=== PATIENT | female | born 1935 | race Caucasian/White ===

== ENCOUNTER 2024-01-02 05:27 | Inpatient (IN) | payer OTHER, SELFPAY ==
[2024-01-02] VITALS (22 sets, daily range): BP systolic 96–169; BP diastolic 63–85; BMI 23.9; BMI 22.9
[2024-01-02 00:33] LABS: % Basophils 0.2 % (0-2); % Eosinophils 1.1 % (0-6); % Immature Granulocytes 1.1 % (0-0.5); % Lymphocytes 16.3 % (20.5-51.1); % Monocytes 7.1 % (1.7-9.3); % Neutrophils 74.2 % (42.2-75.2); Absolute Eosinophils 0.2 10^3/uL (0-0.7); Absolute Immature Granulocytes 0.2 10^3/uL (0-0.05); Absolute Lymphocytes 2.4 10^3/uL (1.2-3.4); Absolute Monocytes 1.1 10^3/uL (0.1-0.6); Absolute Neutrophils 11.1 10^3/uL (1.4-6.5); Hematocrit 41.7 % (37.0-47.0); Hemoglobin 14.2 g/dL (12.0-16.0); Mean Corp Hgb Conc. 34.1 g/dL (33.0-37.0); Mean Corpuscular Hgb 27.8 pg (27.0-31.0); Mean Corpuscular Volume 81.6 fL (81.0-99.0); Mean Platelet Volume 10.6 fL (7.4-10.4); Nucleated Red Blood Cells % 0 %; Platelet Count 223 10^3/uL (130-400); Red Blood Cell Count 5.11 10^6/uL (4.20-5.40); Red Cell Dist. Width 13.9 % (11.5-14.5); White Blood Cell Count 14.9 10^3/uL (4.8-10.8)
[2024-01-02 00:51] LABS: ALT (SGPT) 22 U/L (0-35); AST (SGOT) 18 U/L (14-36); Albumin 3.2 g/dl (3.5-5.0); Alkaline Phosphatase 82 U/L (38-126); Blood Urea Nitrogen 18 mg/dl (7-17); Calcium 8.2 mg/dl (8.4-10.2); Carbon Dioxide 25 mmol/L (22-30); Chloride 102 mmol/L (98-107); Estimated Creatinine Clearance 50 ml/min; Glucose 182 mg/dl (70-99); Potassium 3.5 mmol/L (3.5-5.1); Sodium 134 mmol/L (135-145); Total Bilirubin 0.6 mg/dl (0.2-1.3); Total Protein 5.8 g/dl (6.3-8.2); eGFR > 60.00
[2024-01-02] MEDS: SUBLIMAZE 50 MCG IV ×3 (01:48→03:08)
--- NOTE | 2024-01-02 03:08 | EDRN ---
0308 took over patient care. second attempt at chest tube placement appears successful per xray. Pt placed on suction per MD orders. Pt resting comfortably does report mild discomfort. Pt placed on 12 L nonrebreather tolerating at 95% SpO2. Xray
called for portable xray.
--- NOTE | 2024-01-02 03:41 | ED.GENMED ---
History of Present Illness
<Dusyt Marti Jr., PA-C - Last Filed: 01/02/24 03:45>
General
Chief Complaint: Breathing Problem
Source: patient and family
Exam Limitations: none
Time Seen by Provider: 01/02/24 00:43
Nursing documentation reviewed up to this point in time: agreed with
Travel History
Have you had any contact with someone who has COVID-19?: No
Do you have any symptoms of coronavirus? Fever > 100 degrees, chills, cough, shortness of breath, sore throat, loss of taste or smell, muscle aches, or headache?: No
History of Present Illness
History of Present Illness:
88-year-old female past ministry of COPD diabetes recently was admitted to [facility] discharged 3 days ago after she had an episode of RSV and was quite short of breath she was discharged home with improving symptoms woke up early this
morning prior to arrival with concerns of abrupt worsening of shortness of breath and some discomfort to left chest mainly. Denies any specific fevers nausea vomiting numbness weakness.
Review of Systems
<Dusty Marti Jr., PA-C - Last Filed: 01/02/24 03:45>
Review of Systems
Allergies reviewed?: Yes
All Other Systems: ROS reviewed and negative except as documented in HPI and ROS
Phy Exam
<Dusty Marti Jr., PA-C - Last Filed: 01/02/24 03:45>
Physical Exam
Physical Exam:
GENERAL: Alert , in no apparent distress
EYE: pupils equal and reactive
NECK: Supple, no significant adenopathy.
ENT: o/p clr, mmm.
CARDIAC: Regular rate and rhythm .
LUNGS: Diminished lung sounds on the left side normal lung sounds on the right
ABDOMEN: Soft, without focal tenderness, no r/g, no cvat
NEUROLOGICAL: Alert and oriented, no focal neuro deficits
SKIN: Warm and dry, skin intact.
MUSCULOSKELETAL: No edema, well perfused.
PSYCH: Normal and appropriate interaction.
Scores
<Dusty Marti Jr., PA-C - Last Filed: 01/02/24 03:45>
Heart Failure Risk
Heart Failure Risk Score: Not Applicable
Course
<Dusty Marti Jr., PA-C - Last Filed: 01/02/24 03:45>
Orders/Labs/Results
Orders:
Orders
01/02/24 00:11
Electrocardiogram (*1) Urgent
Reason for Study: Shortness of Breath
01/02/24 00:12
EKG- Treatment ONCE
01/02/24 00:13
CMP [Comprehensive Metabolic Panel] Urgent
Complete Blood Count/With Diff Urgent
01/02/24 00:44
Chest [CR Chest - 2 Views ] Urgent
Comment:
Reason For Exam: sob
01/02/24 01:28
Fentanyl Citrate/Pf [Sublimaze] 50 mcg IV NOW STA
01/02/24 01:45
Fentanyl Citrate/Pf [Sublimaze] 100 mcg .ROUTE .[facility]
01/02/24 02:25
Chest X-ray Portable [CR Chest Portable - 1 View] Stat
Comment:
Reason For Exam: chest tube place,ent
Reason Study Needs to be Portable: Patient Unstable
01/02/24 02:45
Fentanyl Citrate/Pf [Sublimaze] 50 mcg IV NOW STA
01/02/24 02:50
Chest X-ray Portable [CR Chest Portable - 1 View] Stat
Comment:
Reason For Exam: chest tube placement
Reason Study Needs to be Portable: Patient Unstable
01/02/24 03:07
Fentanyl Citrate/Pf [Sublimaze] 50 mcg IV NOW STA
01/02/24 03:17
Chest X-ray Portable [CR Chest Portable - 1 View] Stat
Comment:
Reason For Exam: recheck pneumo after suction
Reason Study Needs to be Portable: Unable to Transport
01/02/24 04:[address] Non Medication Order As Directed
Physician Order: Ok to decrease oxygen to NC if O2 sats tolerate
Abnormal Lab Results
01/02/24
00:13
WBC 14.9 H 10^3/uL
(4.8-10.8)
MPV 10.6 H fL
(7.4-10.4)
Abs Immat Gran (auto) 0.2 H 10^3/uL
(0-0.05)
Absolute Neuts (auto) 11.1 H 10^3/uL
(1.4-6.5)
Absolute Monos (auto) 1.1 H 10^3/uL
(0.1-0.6)
Immature Gran % 1.1 H %
(0-0.5)
Lymphocytes % 16.3 L %
(20.5-51.1)
Sodium 134 L mmol/L
(135-145)
BUN 18 H mg/dl
(7-17)
Glucose 182 H mg/dl
(70-99)
Calcium 8.2 L mg/dl
(8.4-10.2)
Total Protein 5.8 L g/dl
(6.3-8.2)
Albumin 3.2 L g/dl
(3.5-5.0)
01/02/24 00:13
01/02/24 00:13
Vital Signs
Initial and Last Documented VS:
Initial Vital Signs
Temp Pulse Resp Pulse Ox
97.8 F 93 22 94
01/01/24 23:59 01/01/24 23:59 01/01/24 23:59 01/01/24 23:59
Last Documented Vital Signs
Temp Pulse Resp BP Pulse Ox
97.8 F 88 18 169/84 95
01/01/24 23:59 01/02/24 03:30 01/02/24 03:30 01/02/24 03:00 01/02/24 03:30
<Dima Flores MD - Last Filed: 01/02/24 04:43>
Orders/Labs/Results
Orders:
Orders
01/02/24 00:11
Electrocardiogram (*1) Urgent
Reason for Study: Shortness of Breath
01/02/24 00:12
EKG- Treatment ONCE
01/02/24 00:13
CMP [Comprehensive Metabolic Panel] Urgent
Complete Blood Count/With Diff Urgent
01/02/24 00:44
Chest [CR Chest - 2 Views ] Urgent
Comment:
Reason For Exam: sob
01/02/24 01:28
Fentanyl Citrate/Pf [Sublimaze] 50 mcg IV NOW STA
01/02/24 01:45
Fentanyl Citrate/Pf [Sublimaze] 100 mcg .ROUTE .[facility]
01/02/24 02:25
Chest X-ray Portable [CR Chest Portable - 1 View] Stat
Comment:
Reason For Exam: chest tube place,ent
Reason Study Needs to be Portable: Patient Unstable
01/02/24 02:45
Fentanyl Citrate/Pf [Sublimaze] 50 mcg IV NOW STA
01/02/24 02:50
Chest X-ray Portable [CR Chest Portable - 1 View] Stat
Comment:
Reason For Exam: chest tube placement
Reason Study Needs to be Portable: Patient Unstable
01/02/24 03:07
Fentanyl Citrate/Pf [Sublimaze] 50 mcg IV NOW STA
01/02/24 03:17
Chest X-ray Portable [CR Chest Portable - 1 View] Stat
Comment:
Reason For Exam: recheck pneumo after suction
Reason Study Needs to be Portable: Unable to Transport
01/02/24 04:[address] Non Medication Order As Directed
Physician Order: Ok to decrease oxygen to NC if O2 sats tolerate
Abnormal Lab Results
01/02/24
00:13
WBC 14.9 H 10^3/uL
(4.8-10.8)
MPV 10.6 H fL
(7.4-10.4)
Abs Immat Gran (auto) 0.2 H 10^3/uL
(0-0.05)
Absolute Neuts (auto) 11.1 H 10^3/uL
(1.4-6.5)
Absolute Monos (auto) 1.1 H 10^3/uL
(0.1-0.6)
Immature Gran % 1.1 H %
(0-0.5)
Lymphocytes % 16.3 L %
(20.5-51.1)
Sodium 134 L mmol/L
(135-145)
BUN 18 H mg/dl
(7-17)
Glucose 182 H mg/dl
(70-99)
Calcium 8.2 L mg/dl
(8.4-10.2)
Total Protein 5.8 L g/dl
(6.3-8.2)
Albumin 3.2 L g/dl
(3.5-5.0)
01/02/24 00:13
01/02/24 00:13
Vital Signs
Initial and Last Documented VS:
Initial Vital Signs
Temp Pulse Resp Pulse Ox
97.8 F 93 22 94
01/01/24 23:59 01/01/24 23:59 01/01/24 23:59 01/01/24 23:59
Last Documented Vital Signs
Temp Pulse Resp BP Pulse Ox
97.8 F 88 18 169/84 95
01/01/24 23:59 01/02/24 03:30 01/02/24 03:30 01/02/24 03:00 01/02/24 03:30
Procedures
<Dusty Marti Jr., PA-C - Last Filed: 01/02/24 03:45>
Chest Tube
Indication for procedure:: Pneumothorax
Procedure completed by: Dr. Sandra Cota
Consent form signed: Yes
Anesthesia: 1% Lidocaine
Chest tube placed to: left side
Size of chest tube (cm): 1
Preparation: cleaned with Betadine and cleaned with Hibiclens
Chest tube position: mid axillary line
Chest tube sutured to skin?: Yes
Chest tube complications: none
<Dusty Marti Jr., PA-C - Last Filed: 01/02/24 03:45>
MDM/Problems Addressed
MDM/Problems Addressed:
88-year-old female presenting to the emergency department today with concerns of abrupt onset of shortness of breath from her independent living facility. Was recently hospitalized for RSV was feeling better until a few hours prior to arrival.
Upon arrival pulse ox low was placed on oxygen with improving pulse ox diminished lung sounds to the left side x-ray pneumothorax. Tube was placed. Pulse ox improving lung expanded on repeated chest patient mid to ICU for further monitoring.
<Dusty Marti Jr., PA-C - Last Filed: 01/02/24 03:45>
*Critical Care Note
Total Time (30-74mins, 75-104mins- exclusive of procedures): Critical care statement:
ED Attending Note
<Dusty Marti Jr., PA-C - Last Filed: 01/02/24 03:45>
-
Portions of this chart may have been created with voice recognition software.� Occasional wrong word or��sound alike� substitutions may have occurred due to the inherent limitations of voice recognition software.
<Dima Flores MD - Last Filed: 01/02/24 04:43>
ED Attending Note
Patient seen and examined by attending physician: Yes
ED Attending Note:
Patient discharged from [facility] 3 days ago after being treated for RSV, presents to ED secondary to sudden onset of left-sided pain along with shortness of breath this evening. Denies nausea or vomiting. Denies fever. Denies trauma.
Denies previous history of similar symptoms. Patient is an ex smoker.
Physical Exam
General: moderate respiratory distress, acutely ill. afebrile.
Head: nc/at. eomi
Neck: supple. normal range of motion. no tracheal deviation noted.
Heart: s1/s2 regular rate and rhythm, no murmur. equal radial pulses.
Lungs: mild respiratory distress. diminished breath sound left lower/upper base
Abdomen: normal bowel sounds. not tender.
Neuro: alert and oriented. no focal neurological deficits
Skin: no rash
Psychiatric: well kept. interactive and cooperative
Extremities: no edema. no calf tenderness.
X-ray: large left-sided pneumothorax. Procedure consent obtained for placement of chest tube.
Chest tube successfully placed by Kota Marti, physician community program assistant, under my guidance, after second attempt, as initial chest x-ray showed that chest tube did not penetrate lung pleura, when evaluated via chest x-ray.
Patient will be admitted to ICU for further evaluation and treatment.
Critical care statement: A total of 40 minutes of critical care time was provided for this patient. This includes management of unstable vital signs, evaluation of the patient at bedside, reviewing the patient's pertinent medical records, review of
old EKGs and review of pertinent medical records. This time with separate from time utilized to perform the aforementioned documented procedures
Discharge Plan
Departure
Patient Disposition: Admit
Date of Disposition: 01/02/24
Time of Disposition: 03:41
Admit to: ICU
Admit to doctor: Eduardo
Presentation/result/management discussed w/ accepting MD/DO: Hospitalist
Patient with high blood pressure during this ER visit?: No
Condition: Fair
Covid-19: Not Applicable
Discharge Problem:
Pneumothorax
Referrals:
Rosina Warren MD [Family Provider] -
Interventions
Interventions:
*Risk Screen - Suicide Last Done: 01/02/24 00:14
*General Assessment Last Done: 01/02/24 00:14
*Neglect/Abuse Screening Last Done: 01/02/24 00:14
ED- Fall Risk Assessment Last Done: 01/02/24 00:14
*ED COVID-19 Vaccine History Last Done: 01/02/24 00:14
ED- Cardiac Assessment Last Done: 01/02/24 00:14
ED- Pulmonary Assessment Last Done: 01/02/24 00:14
Discharge Date and Time
Print Language: MALAYSIAN
--- NOTE | 2024-01-02 04:14 | HPS.HSE ---
Addendum entered and electronically signed by Jess Clark MD 01/09/24 15:07:
Allergies
Allergy/AdvReac Type Severity Reaction Status Date / Time
atorvastatin [From Lipitor] Allergy Mild myalgia Verified 01/02/24 01:40
simvastatin [From Zocor] Allergy Mild myalgia Verified 01/02/24 01:41
Home Medications
acetaminophen 500 mg tablet 500 mg PO Q6H PRN pain 01/02/24
albuterol sulfate 90 mcg/actuation aerosol inhaler 1 inh inhalation Q4HPRN PRN sob/wheeze 01/02/24
amlodipine 5 mg tablet 5 mg PO DAILY Blood Pressure 01/02/24
aspirin 81 mg chewable tablet 81 mg PO DAILY Blood Clot Prevention/Tx 01/02/24
benzonatate 100 mg capsule 100 mg PO TID PRN cough 01/02/24
budesonide-formoterol HFA 160 mcg-4.5 mcg/actuation aerosol inhaler (Symbicort) 2 puff inhalation BID Lung/Breathing Issues 01/02/24
calcium carbonate 600 mg PO DAILY Supplement 01/02/24
calcium polycarbophil 625 mg tablet 625 mg PO DAILY Constipation 01/02/24
cholecalciferol (vitamin D3) 50 mcg (2,000 unit) tablet (Vitamin D3) 50 mcg PO DAILY Supplement 01/02/24
clobetasol 0.05 % shampoo 1 applic topical BIDPRN PRN itchy scalp 01/02/24
fluticasone propionate 50 mcg/actuation nasal spray,suspension 1 spray intranasal DAILY Lung/Breathing Issues 01/02/24
folic acid 1 mg tablet 1 mg PO DAILY Supplement 01/02/24
guaifenesin 600 mg tablet, extended release 12 hr (Mucinex) 600 mg PO BID Cough 01/02/24
insulin glargine 100 unit/mL subcutaneous cartridge 12 unit SC DAILY Diabetes 01/02/24
ketoconazole 2 % shampoo 1 applic topical .2X/WEEK Skin Issues 01/02/24
loperamide 2 mg tablet (Imodium A-D) 2 mg PO DAILY PRN diarrhea 01/02/24
metformin 500 mg tablet 500 mg PO BID Diabetes 01/02/24
montelukast 10 mg tablet (Singulair) 10 mg PO DAILY Allergies 01/02/24
multivitamin 1 tab PO DAILY Supplement 01/02/24
rosuvastatin 5 mg tablet 5 mg PO DAILY High Cholesterol 01/02/24
sitagliptin phosphate 100 mg tablet (Januvia) 100 mg PO DAILY Diabetes 01/02/24
Addendum entered and electronically signed by Jess Clark MD 01/09/24 08:09:
Allergies
Allergy/AdvReac Type Severity Reaction Status Date / Time
atorvastatin [From Lipitor] Allergy Mild myalgia Verified 01/02/24 01:40
simvastatin [From Zocor] Allergy Mild myalgia Verified 01/02/24 01:41
Home Medications
acetaminophen 500 mg tablet 500 mg PO Q6H PRN pain 01/02/24
albuterol sulfate 90 mcg/actuation aerosol inhaler 1 inh inhalation Q4HPRN PRN sob/wheeze 01/02/24
amlodipine 5 mg tablet 5 mg PO DAILY Blood Pressure 01/02/24
aspirin 81 mg chewable tablet 81 mg PO DAILY Blood Clot Prevention/Tx 01/02/24
benzonatate 100 mg capsule 100 mg PO TID PRN cough 01/02/24
budesonide-formoterol HFA 160 mcg-4.5 mcg/actuation aerosol inhaler (Symbicort) 2 puff inhalation BID Lung/Breathing Issues 01/02/24
calcium carbonate 600 mg PO DAILY Supplement 01/02/24
calcium polycarbophil 625 mg tablet 625 mg PO DAILY Constipation 01/02/24
cholecalciferol (vitamin D3) 50 mcg (2,000 unit) tablet (Vitamin D3) 50 mcg PO DAILY Supplement 01/02/24
clobetasol 0.05 % shampoo 1 applic topical BIDPRN PRN itchy scalp 01/02/24
fluticasone propionate 50 mcg/actuation nasal spray,suspension 1 spray intranasal DAILY Lung/Breathing Issues 01/02/24
folic acid 1 mg tablet 1 mg PO DAILY Supplement 01/02/24
guaifenesin 600 mg tablet, extended release 12 hr (Mucinex) 600 mg PO BID Cough 01/02/24
insulin glargine 100 unit/mL subcutaneous cartridge 12 unit SC DAILY Diabetes 01/02/24
ketoconazole 2 % shampoo 1 applic topical .2X/WEEK Skin Issues 01/02/24
loperamide 2 mg tablet (Imodium A-D) 2 mg PO DAILY PRN diarrhea 01/02/24
metformin 500 mg tablet 500 mg PO BID Diabetes 01/02/24
montelukast 10 mg tablet (Singulair) 10 mg PO DAILY Allergies 01/02/24
multivitamin 1 tab PO DAILY Supplement 01/02/24
rosuvastatin 5 mg tablet 5 mg PO DAILY High Cholesterol 01/02/24
sitagliptin phosphate 100 mg tablet (Januvia) 100 mg PO DAILY Diabetes 01/02/24
Original Note:
Family Physician
-
Family Physician: Rosina Warren
Chief Complaint
-
shortness of breath
History of Present Illness
Ms. Mike Mc is a 88 yo woman with hx COPD, DM, recent admission to [facility] for RSV presents to the ER with abrupt onset increased shortness of breath.
Patient had improved symptoms post discharge. No fevers/chills. + continued cough but improving. She woke up early this morning with sudden shortness of breath and discomfort to left chest.
Patient is seen post pigtail catheter placement for pneumothorax. She is feeling better. She is conversant.
No recent nausea/vomiting/diarrhea. No LE swelling, no rash.
Medical History
Past Medical History
Past Medical History: Reports Other ( COPD, DM)
Past Surgical History: Reports None
Social History
Tobacco: Non-smoker
Alcohol: None
Family History
Family History: Not pertinent
Allergies / Home Medications
Allergies reflects when Allergies were last updated in [facility].
Home Medications with original date entered in [facility]
Allergy/Medication List:
Allergies
Allergy/AdvReac Type Severity Reaction Status Date / Time
atorvastatin [From Lipitor] Allergy Mild myalgia Verified 01/02/24 01:40
simvastatin [From Zocor] Allergy Mild myalgia Verified 01/02/24 01:41
Review of Systems
-
History Source: Patient
A 12 point ROS was completed and negative except as noted: Yes
Physical Exam
Vital Signs
Vital Signs
Temp Pulse Resp BP Pulse Ox
97.8 F 88 18 169/84 95
01/01/24 23:59 01/02/24 03:30 01/02/24 03:30 01/02/24 03:00 01/02/24 03:30
Physical Exam
General: No Apparent Distress and Conversant
HEENT: Other (patiet with NRB on, conversant )
Respiratory: Other (decreased bs left lung); No Wheezes
Cardiac: S1/S2 and Regular Rhythm
GI: Soft and Non Tender
Musculoskeletal: No Edema
Neuro: AO x 3
Psych: Calm
Laboratory Results
-
01/02/24 00:13
01/02/24 00:13
Laboratory Results
Total Bilirubin 0.6 mg/dl (0.2-1.3) 01/02/24 00:13
AST 18 U/L (14-36) 01/02/24 00:13
ALT 22 U/L (0-35) 01/02/24 00:13
Alkaline Phosphatase 82 U/L (38-126) 01/02/24 00:13
Data Reviewed
-
Diagnostic Radiology: Report Reviewed by me
Lab Data: Labs Reviewed by me
Impression/Plan
-
Ms. Mike Mc is a 88 yo woman with hx COPD, DM, recent admission to [facility] for RSV presents to the ER with abrupt onset increased shortness of breath.
Triage VS: T 97.8, P 93, RR 22, SpO2 94%
LABS: WBC 14.9, Hg 14.2, PLT 223, Na 134, K+ 3.5, BUN 18, Cr 0.6, Glucose 182
CXR: large pneumothorax left
s/p pigtail catheter placement in the ER
Left Lung Pneumothorax
-s/p pigtail catheter in ER with improvement on repeat CXR following placement
-given size of pneumothorax and need for urgent catheter placement, will admit to ICU
-Pulmonary consult
-chest tube management per Pulmonary, may need CTS consult
-O2 support as needed, OK to decrease to NC
*Patient states she is on many medications but unsure of names --needs med rec complete and meds ordered
DVT PPx SCD
DNR - discussed on admission
[2024-01-02] MEDS: NSS 1000 IV ×2 (06:22→21:23)
--- NOTE | 2024-01-02 06:31 | PTCARENOTE ---
Rec'd patient from ED. AAOx3. NSR on tele monitor with rate in the 80's. Vitals stable. Pulse ox 94% on 15L NRB. PUCKETT and orthopneic. Left chest tube placed to suction per MD order. No tidaling or air leak. Crepitus noted on left back. COURTESY CLERK Christopher
[facility]col notified. CXR ordered. Order for ABG also placed.
[2024-01-02 06:50] LABS: B.E. 4.2 mmol/L; HCO3 29.8 mmol/L (21-28); O2 Saturation % 97.4 % (94-98); PCO2 47 mmHg (32-35); PO2 77 mmHg (83-108); pH 7.41 (7.35-7.45)
--- NOTE | 2024-01-02 07:45 | CON.INTV ---
Consultation
Consultation Request
Date/Time Consultation Requested: 01/01
Date/Time Consultation Performed: 01/01
Reason for Consultation: critical care
Medical History
-
History of Present Illness:
History obtained from the chart and from the patient. 88-year-old female with history of COPD, diabetes, history of stroke who was recently discharged from [facility] with RSV infection. She was apparently discharged on home oxygen.
Patient states she was doing well up until morning of admission when she woke up with sudden shortness of breath and left chest discomfort. Patient lives at [facility]. She was brought to [facility] where upon arrival, afebrile, pulse
93, breathing at 22, 94%. Chest x-ray showed left lung complete pneumothorax. Left chest tube was placed. Follow-up chest x-ray showed reexpansion. Throughout this patient describes mild cough but no hemoptysis. Denies nausea, falls, trauma,
PND, orthopnea, fevers, blood in urine or stool, difficulty swallowing or choking. We are asked to help from critical care standpoint 01/02/24
Of not pt was on steroids post dc from [facility]
.
PMH: CVA 02/2022 numbness rt side hospitalized at [facility], Breast Ca 1988 recurred 2003/raymundo mastectomy/chemo/Tamoxifen, hx of DM (poorly controlled), HTN, hx of Asthma/Copd
Past Medical History
Past Medical History: None (see above)
Past Surgical History: None (see above)
Social History
Tobacco: Former Smoker (quit 40 years ago)
Alcohol: Occasional
Drug: None
Personal:
Living: Assisted Living ([facility])
Family History
Family History: Other (2 children healthy, 1B healthy)
Allergies / Home Medications
Allergies
Allergy/AdvReac Type Severity Reaction Status Date / Time
atorvastatin [From Lipitor] Allergy Mild myalgia Verified 01/02/24 01:40
simvastatin [From Zocor] Allergy Mild myalgia Verified 01/02/24 01:41
Review of Systems
-
All other systems: Negative unless noted
Vitals / Labs / Diagnostic Testing
Vital Signs
Temp Pulse Resp BP Pulse Ox
97.8 F 99 26 156/85 94
01/02/24 06:40 01/02/24 06:00 01/02/24 06:00 01/02/24 06:00 01/02/24 06:39
Lab Data
01/02/24 00:13
01/02/24 00:13
Laboratory Results
01/02/24
06:39
pH 7.41
pCO2 47 H
pO2 77 L
HCO3 29.8 H
O2 Delivery Level
Diagnostic Testing:
Physical Exam
-
HEENT: Normocephalic and Anicteric
Cardiovascular: S1/S2, Regular Rhythm, Murmur (n), Rub (n) and Peripheral Edema (n)
Respiratory: Wheeze (n), Rales (n), Rhonchi, Other (Left chest tube) and Other (Mild crepitus)
GI: Soft, Non Distended and Non Tender
Neurology: Awake, Alert and Oriented
Skin: Other (No clubbing, cyanosis or brusiing)
Assessment
-
88-year-old female with history of asthma/COPD, recent RSV pneumonia discharged 12/29/23 on steroid therapy, now presents with acute onset shortness of breath, found to have left pneumothorax, requiring chest tube 01/02/24
Spontaneous left pneumothorax
Chest tube in ED 01/02/2024
Recent RSV pneumonia, discharged 12/29/23
Hyperglycemia, poorly controlled
Mild hyponatremia
Conditions present prior to admission
Hypertension/hyperlipidemia
History of stroke February 2022
Hospitalized at [facility], right-sided weakness/numbness
History of breast cancer 1987, recurred 2003
Bilateral mastectomy/chemotherapy/tamoxifen therapy
History of COPD/asthma
Followed by [facility]
Plan/recommendations
At this time, patient appears to be comfortable
Mild crepitus on exam noted
Left chest tube without respiratory variation, no airleak at this time
Poorly controlled blood sugars noted
Moving forward
Maintain chest tube to suction for 24 hours
Concerned about complete collapse of left lung and recent RSV pneumonia
According to daughter, unclear about recent CT imaging
Depending on how she does, will transition to waterseal Friday into Friday, consider clamping of tube at Friday with removal
We will obtain a CT chest around that time
Patient needs better blood sugar control
Poor compliance per daughter
Resume daily insulin therapy, continue with low-dose sliding scale
Will make adjustments
No indication for steroids at this time
Replete potassium
Add DVT prophylaxis: Mechanical and pharmacological
Patient with recent steroid course.
No indication for GERD therapy at this time
Reviewed with critical care nursing, respiratory failure, pharmacy
Okay for transfer out of ICU. Pulmonary will follow
[2024-01-02 08:34] LABS: Glucose - Point of Care 317 mg/dl (70-99)
[2024-01-02] MEDS: TYLENOL 650 MG PO ×2 (08:50→12:50)
[2024-01-02] MEDS: NOVOLOG FLEXPEN-LOW RESISTANCE 4 UNITS SC (09:28)
[2024-01-02] MEDS: DILAUDID 0.25 MG IV ×3 (09:33→21:22)
[2024-01-02 09:58] LABS: Glycohemoglobin (HgbA1c) 9.3 % (4.0-5.6)
[2024-01-02 10:57] LABS: Glucose - Point of Care 282 mg/dl (70-99)
[2024-01-02] MEDS: NOVOLOG FLEXPEN 4 UNITS SC ×2 (11:15→16:50)
--- NOTE | 2024-01-02 11:24 | CM ---
CM following re: discharge planning.
Discussed in rounds, reviewed pt's chart, met with pt.
Pt is an 88 year old female, admitted with primary dx of Left Lung Pneumothorax. Chest tube was placed in ED.
Pt reports she was born and grew up in [place], immigrated to [place] and resided with family in [place]. Pt reports she has been living alone in an independent apartment at [facility] since 2021, has 2 supportive children. Pt
described herself as independent in all areas TA, uses a Rollator for safety when goes outside.
PCP: Rosina Warren
Pharmacy: [facility]
D/C plan: home with most likely VN services.
CM will follow with discharge plan updates as hospitalization progresses
[2024-01-02] MEDS: LANTUS 0.100000000000000006 UNITS SC (11:39)
[2024-01-02] MEDS: NOVOLOG FLEXPEN-LOW RESISTANCE SC (13:01)
--- NOTE | 2024-01-02 15:25 | PTCARENOTE ---
Pt has been sitting up in chair since this am. With min assist of 1 pt has been getting on/off bedside commode as needed to void. Tolerating well. Given tylenol and dilaudid as charted for pain which as expected increases with movement.
Otherwise please refer to assessment.
--- NOTE | 2024-01-02 15:33 | W.PN.HOSP.TC ---
Today's Communication/Plan
-
Restart medicines
Increase Lantus to 12 units
Medications reconciled
Chest tube management
Assessment / Plan
Assessment / Plan
88-year-old female recently discharged from [facility] after an RSV infection. She was discharged home on home oxygen. She woke up with sudden shortness of breath and left sided chest discomfort and was sent to our ER. She was found to
have pneumothorax.
On examination sitting in a chair. Awake alert oriented
Cardiovascular system S1-S2 appreciated
Chest no wheezing or rales. Few crepitus on the left side
Chest tube
Abdomen soft and nontender
Neuroexam is nonfocal
# Spontaneous left pneumothorax
Likely precipitated by recent RSV infection
Chest tube was placed in the emergency room on 01/02/2024
Management per pulmonary
Continue oxygen supplementation
Repeat chest x-ray reviewed by me-resolution of pneumothorax
# Poorly controlled diabetes
Increase Lantus to 12 U and NovoLog 4 AC to be continued
Restart OHA
On Januvia 100 mg daily, metformin 5 mg twice daily, Lantus 12 units daily as outpatient
Hemoglobin A1c 9.3
# Mild hyponatremia likely secondary to elevated blood sugars
# COPD/asthma-followed by [place] [facility]
On Symbicort inhaler, albuterol, fluticasone
# Hypertension-amlodipine
# Hyperlipidemia-continue statin
# History of stroke February 2022 hospitalized at [facility] patient has right-sided weakness
# History of breast cancer with bilateral mastectomy in 1987 in 2003
# Ex-smoker
# DVT prophylaxis-Lovenox
Discussed with pulmonary
Discussed with nursing
Meds re conciled
Anticipated Discharge: 24 - 48 hours
Subjective/Interval History
-
Date of Service: January 02, 2024
Objective Data
-
Labs:
Laboratory Results
01/02/24
06:39
HCO3 29.8 H
Vital Signs:
Vital Signs
Temp Pulse Resp BP Pulse Ox
98 F 75 22 143/81 95
01/02/24 11:20 01/02/24 15:15 01/02/24 15:15 01/02/24 15:15 01/02/24 15:22
I&O
01/01/24 01/02/24 01/03/24
06:59 06:59 06:59
Intake Total 1000 / 1000
Output Total 650 / 650
Balance 350 / 350
[2024-01-02] MEDS: VITAMIN D3 (cholecalciferol) 50 MCG PO (16:47)
[2024-01-02] MEDS: GLUCOPHAGE 500 MG PO (16:48)
[2024-01-02] MEDS: NORVASC 5 MG PO (16:48)
[2024-01-02] MEDS: JANUVIA 100 MG PO (16:48)
[2024-01-02] MEDS: FOLVITE 1 MG PO (16:48)
[2024-01-02] MEDS: SINGULAIR 10 MG PO (16:48)
[2024-01-02] MEDS: THERAGRAN 1 TABLET PO (16:48)
[2024-01-02] MEDS: NOVOLOG FLEXPEN-LOW RESISTANCE 3 UNITS SC (16:49)
[2024-01-02 16:52] LABS: Glucose - Point of Care 262 mg/dl (70-99)
[2024-01-02] MEDS: TYLENOL 1000 MG PO (17:59)
[2024-01-02] MEDS: CRESTOR 5 MG PO (17:59)
[2024-01-02] MEDS: LOVENOX 40 MG SC (18:00)
[2024-01-02] MEDS: SYMBICORT 160/4.5 MCG INHALER 2 PUFF INH (20:11)
[2024-01-02] MEDS: MUCINEX 600 MG PO (21:22)
[2024-01-02 21:33] LABS: Glucose - Point of Care 191 mg/dl (70-99)
[2024-01-03 00:01] VITALS: BP 127/79
[2024-01-03] MEDS: TYLENOL 1000 MG PO ×4 (00:01→17:42)
[2024-01-03 04:00] VITALS: BP 141/75
--- NOTE | 2024-01-03 07:16 | W.PN.INTV ---
Today's Communication / Plan
Recommendations
Chest tube to waterseal later today
Chest x-ray in a.m.
Given recent RSV pneumonia, will consider CT chest 01/03
possible removal of chest tube 01/04
Follow blood sugars
DVT prophylaxis
Assessment
-
88-year-old female with history of asthma/COPD, recent RSV pneumonia discharged 12/29/23 on steroid therapy, now presents with acute onset shortness of breath, found to have left pneumothorax, requiring chest tube 01/02/24
Spontaneous left pneumothorax
Chest tube in ED 01/02/2024
Recent RSV pneumonia, discharged 12/29/23
Hyperglycemia, poorly controlled
Mild hyponatremia
Conditions present prior to admission
Hypertension/hyperlipidemia
History of stroke February 2022
Hospitalized at [facility], right-sided weakness/numbness
History of breast cancer 1987, recurred 2003
Bilateral mastectomy/chemotherapy/tamoxifen therapy
History of COPD/asthma
Followed by [place] [facility]
Plan/recommendations
At this time, patient appears to be comfortable
Mild crepitus on exam noted
Left chest tube without respiratory variation, no airleak at this time
Poorly controlled blood sugars noted, improved
Moving forward
Maintain chest tube to suction for 24 hours, will transition to waterseal later today
Concerned about complete collapse of left lung and recent RSV pneumonia. This is suggestive of possible parenchymal abnormality
According to daughter, unclear about recent CT imaging
Depending on how she does, will transition to clamping of tube at Friday/Friday with Friday removal
We will obtain a CT chest around that time
Patient needs better blood sugar control, improved
Poor compliance per daughter
Resume daily insulin therapy, continue with low-dose sliding scale
Will make adjustments
No indication for steroids at this time
Replete potassium
DVT prophylaxis: Mechanical and pharmacological
Patient with recent steroid course at [place].
No indication for GERD therapy at this time
Reviewed with critical care nursing, respiratory failure, pharmacy
Okay to maintain IMU status given chest tube
Pulmonary will continue to follow
Subjective Dataa
Subjective Data
Date of Service:
Date of Service: January 03, 2024
Subjective:
Patient sitting in chair, appears to be in good spirits. Complaining of chest tube discomfort but otherwise feels breathing stable, denies nausea, abdominal pain
Objective Data
Data Reviewed
Vital Signs / I&O / Oxygen:
Vital Signs
Temp Pulse Resp BP Pulse Ox
98 F 74 17 141/75 98
01/03/24 04:00 01/03/24 04:00 01/03/24 04:00 01/03/24 04:00 01/03/24 04:00
Intake and Output
01/02/24 01/03/24 01/04/24
06:59 06:59 06:59
Intake Total 2200 / 2200
Output Total 1400 / 1400
Balance 800 / 800
SaO2 98
Nasal Cannula flow liters per 2
minute
Physical Exam
General: Comfortable
HEENT: Normocephalic and Anicteric
Cardiovascular: S1-S2, Regular Rhythm, Murmur (n), Rub (n), Peripheral Edema (n) and Calf Tenderness (n)
Respiratory: Wheeze (n), Crackles (n), Rhonchi (n), Chest Tube and Other (Decreased breath sounds)
GI: Soft, Non Distended and Non Tender
Neurology: Awake, Alert and No Motor Deficits
Skin: Cyanosis (n), Jaundice (n) and Rash (n)
[2024-01-03 07:45] LABS: Glucose - Point of Care 111 mg/dl (70-99)
[2024-01-03] MEDS: NOVOLOG FLEXPEN-LOW RESISTANCE SC ×2 (07:55→17:39)
[2024-01-03] MEDS: LOW STRENGTH ASPIRIN 81 MG PO (07:59)
[2024-01-03] MEDS: MUCINEX 600 MG PO ×2 (07:59→20:07)
[2024-01-03] MEDS: OSCAL CAL 500 500 MG PO (07:59)
[2024-01-03 08:00] VITALS: BP 135/79
[2024-01-03] MEDS: FOLVITE 1 MG PO (08:00)
[2024-01-03] MEDS: GLUCOPHAGE 500 MG PO ×2 (08:00→17:42)
[2024-01-03] MEDS: JANUVIA 100 MG PO (08:00)
[2024-01-03] MEDS: THERAGRAN 1 TABLET PO (08:00)
[2024-01-03] MEDS: SINGULAIR 10 MG PO (08:00)
[2024-01-03] MEDS: NORVASC 5 MG PO (08:00)
[2024-01-03] MEDS: VITAMIN D3 (cholecalciferol) 50 MCG PO (08:00)
[2024-01-03] MEDS: SYMBICORT 160/4.5 MCG INHALER 2 PUFF INH ×2 (08:07→20:14)
[2024-01-03] MEDS: LANTUS 0.119999999999999996 UNITS SC (08:30)
[2024-01-03] MEDS: NOVOLOG FLEXPEN 4 UNITS SC ×2 (08:30→12:08)
[2024-01-03 08:34] LABS: % Basophils 0.1 % (0-2); % Eosinophils 0.8 % (0-6); % Immature Granulocytes 0.6 % (0-0.5); % Lymphocytes 10.9 % (20.5-51.1); % Neutrophils 78.6 % (42.2-75.2); Absolute Eosinophils 0.1 10^3/uL (0-0.7); Absolute Immature Granulocytes 0.1 10^3/uL (0-0.05); Absolute Lymphocytes 1.4 10^3/uL (1.2-3.4); Absolute Monocytes 1.1 10^3/uL (0.1-0.6); Absolute Neutrophils 9.9 10^3/uL (1.4-6.5); Hematocrit 39.5 % (37.0-47.0); Hemoglobin 12.9 g/dL (12.0-16.0); Mean Corp Hgb Conc. 32.7 g/dL (33.0-37.0); Mean Corpuscular Hgb 27.2 pg (27.0-31.0); Mean Corpuscular Volume 83.3 fL (81.0-99.0); Mean Platelet Volume 11.2 fL (7.4-10.4); Nucleated Red Blood Cells % 0 %; Platelet Count 203 10^3/uL (130-400); Red Blood Cell Count 4.74 10^6/uL (4.20-5.40); Red Cell Dist. Width 13.8 % (11.5-14.5); White Blood Cell Count 12.6 10^3/uL (4.8-10.8)
[2024-01-03 08:43] LABS: APTT 27.3 Sec (23.4-35.0); INR 1.09; PT 13.9 Sec (11.4-14.6)
[2024-01-03 08:57] LABS: ALT (SGPT) 20 U/L (0-35); AST (SGOT) 19 U/L (14-36); Albumin 3.5 g/dl (3.5-5.0); Alkaline Phosphatase 69 U/L (38-126); Blood Urea Nitrogen 19 mg/dl (7-17); Calcium 9.1 mg/dl (8.4-10.2); Carbon Dioxide 29 mmol/L (22-30); Chloride 100 mmol/L (98-107); Estimated Creatinine Clearance 43 ml/min; Glucose 112 mg/dl (70-99); Magnesium 1.9 mg/dl (1.6-2.3); Potassium 4.3 mmol/L (3.5-5.1); Sodium 133 mmol/L (135-145); Total Bilirubin 0.8 mg/dl (0.2-1.3); Total Protein 6.3 g/dl (6.3-8.2); eGFR > 60.00
--- NOTE | 2024-01-03 11:25 | W.PN.HOSP.TC ---
Today's Communication/Plan
-
see bold
Assessment / Plan
Assessment / Plan
Gen: NAD, AAOx3.
Eyes: EOMI, PERRLA, no scleral icterus.
Neck: supple.
CV: RRR, +S1/S2, no m/r/g.
Resp: CTAB, no rales, wheezes, or rhonchi.
Abd: +BS, soft, NT, ND
Skin: No rashes.
Neuro: CN 2-12 intact, non-focal.
Psych: Normal mood and affect.
CXR 01/02/24: Left chest tube again seen with likely resolution of left pneumothorax.
Spontaneous left pneumothorax:
-Likely precipitated by recent RSV infection
-chest tube was placed in the emergency room on 01/02/2024
-pulmonary following
-continue oxygen supplementation
-CT just placed to water seal
DM2:
-a1c 9.3%
-cont cont Lanuts/premeal Novolog/SSI/accuchecks
-cont Metformin/Januvia
Other problems:
Mild hyponatremia
COPD/asthma: Continue Singulair/Symbicort
Essential hypertension: cont amlodipine
Hyperlipidemia: continue statin
h/o CVA February 2022 [place] [facility]SA/statin
h/o breast cancer with bilateral mastectomy in 1988 in 2003
DNR/Lovenox
Anticipated Discharge: 24 - 48 hours
Subjective/Interval History
-
Date of Service: January 03, 2024
Denies shortness of breath
Objective Data
-
Labs:
Laboratory Results
01/03/24
08:20
WBC 12.6 H
Hgb 12.9
Hct 39.5
Plt Count 203
PT 13.9
INR 1.09
APTT 27.3
Sodium 133 L
Potassium 4.3
Chloride 100
Carbon Dioxide 29
BUN 19 H
Creatinine 0.7
Glucose 112 H
Calcium 9.1
Total Bilirubin 0.8
AST 19
ALT 20
Alkaline Phosphatase 69
Vital Signs:
Vital Signs
Temp Pulse Resp BP Pulse Ox
98.5 F 68 26 135/79 95
01/03/24 08:13 01/03/24 11:00 01/03/24 11:00 01/03/24 08:00 01/03/24 10:31
I&O
01/02/24 01/03/24 01/04/24
06:59 06:59 06:59
Intake Total 2200 / 2200
Output Total 1400 / 1400
Balance 800 / 800
[2024-01-03 11:55] LABS: Glucose - Point of Care 183 mg/dl (70-99)
[2024-01-03] MEDS: NOVOLOG FLEXPEN-LOW RESISTANCE 1 UNITS SC (12:07)
[2024-01-03] MEDS: NSS 1000 IV (13:53)
[2024-01-03 16:54] LABS: Glucose - Point of Care 98 mg/dl (70-99)
[2024-01-03] MEDS: NOVOLOG FLEXPEN SC (17:40)
[2024-01-03] MEDS: LOVENOX 40 MG SC (17:42)
[2024-01-03] MEDS: CRESTOR 5 MG PO (17:42)
[2024-01-03 20:06] VITALS: BP 133/63
[2024-01-03 21:27] LABS: Glucose - Point of Care 128 mg/dl (70-99)
[2024-01-03] MEDS: DILAUDID 0.25 MG IV (21:39)
[2024-01-04] VITALS (7 sets, daily range): BP systolic 119–147; BP diastolic 63–74; BMI 23.3
[2024-01-04] MEDS: TYLENOL 1000 MG PO ×3 (00:35→13:59)
[2024-01-04] MEDS: DILAUDID 0.25 MG IV (05:43)
[2024-01-04 06:14] LABS: Hematocrit 40.4 % (37.0-47.0); Hemoglobin 13.6 g/dL (12.0-16.0); Mean Corp Hgb Conc. 33.7 g/dL (33.0-37.0); Mean Corpuscular Hgb 27.6 pg (27.0-31.0); Mean Corpuscular Volume 81.9 fL (81.0-99.0); Mean Platelet Volume 10.9 fL (7.4-10.4); Platelet Count 204 10^3/uL (130-400); Red Blood Cell Count 4.93 10^6/uL (4.20-5.40); Red Cell Dist. Width 14.2 % (11.5-14.5); White Blood Cell Count 11.5 10^3/uL (4.8-10.8)
[2024-01-04 06:44] LABS: Blood Urea Nitrogen 16 mg/dl (7-17); Calcium 8.9 mg/dl (8.4-10.2); Carbon Dioxide 29 mmol/L (22-30); Chloride 102 mmol/L (98-107); Estimated Creatinine Clearance 43 ml/min; Glucose 80 mg/dl (70-99); Potassium 4.1 mmol/L (3.5-5.1); Sodium 134 mmol/L (135-145); eGFR > 60.00
--- NOTE | 2024-01-04 07:09 | W.PN.INTV ---
Today's Communication / Plan
Recommendations
CT chest later today
Anticipate clamping of chest tube overnight
Anticipate removal of chest tube in the next 24 hours given above
Out of bed to chair
DVT prophylaxis
Continue to follow blood sugars
Assessment
-
88-year-old female with history of asthma/COPD, recent RSV pneumonia discharged 12/29/23 on steroid therapy, now presents with acute onset shortness of breath, found to have left pneumothorax, requiring chest tube 01/02/24
Spontaneous left pneumothorax
Chest tube in ED 01/02/2024
Recent RSV pneumonia, discharged 12/29/23 from [facility]
Hyperglycemia, poorly controlled
Mild hyponatremia
Conditions present prior to admission
Hypertension/hyperlipidemia
History of stroke February 2022
Hospitalized at [facility], right-sided weakness/numbness
History of breast cancer 1987, recurred 2003
Bilateral mastectomy/chemotherapy/tamoxifen therapy
History of COPD/asthma
Followed by [place] [facility]
Plan/recommendations
At this time, patient appears to be comfortable
Mild crepitus on exam noted, improved
Left chest tube without respiratory variation, no airleak at this time
Waterseal
Poorly controlled blood sugars noted, improved
Moving forward
Will obtain CT chest later today
Concerned about complete collapse of left lung with recent history of RSV pneumonia.
Depending on CT chest, will consider clamping of chest tube overnight, hold for possible removal in the next 24 hours
According to daughter, unclear about recent CT imaging
Patient needs better blood sugar control, improved
Poor compliance per daughter
Resume daily insulin therapy, continue with low-dose sliding scale
Will make adjustments
No indication for steroids at this time
Follow electrolytes
DVT prophylaxis: Mechanical and pharmacological
Patient with recent steroid course at [place].
No indication for GERD therapy at this time
Reviewed with critical care nursing, respiratory failure
Out of bed to chair
Okay to maintain IMU status given chest tube
Pulmonary will continue to follow
Subjective Dataa
Subjective Data
Date of Service:
Date of Service: January 04, 2024
Subjective:
Patient is without complaints. Chest tube discomfort noted. Passing gas but has yet to have bowel movement. Denies nausea, abdominal pain, shortness of breath
Objective Data
Data Reviewed
Vital Signs / I&O / Oxygen:
Vital Signs
Temp Pulse Resp BP Pulse Ox
98 F 65 15 126/65 97
01/04/24 04:00 01/04/24 04:00 01/04/24 04:00 01/04/24 04:00 01/04/24 04:00
Intake and Output
01/03/24 01/04/24 01/05/24
06:59 06:59 06:59
Intake Total 2200 / 2200 540 / 540
Output Total 1400 / 1400 1000 / 1000
Balance 800 / 800 -460 / -460
SaO2 97
Nasal Cannula flow liters per 3
minute
Physical Exam
General: Comfortable
HEENT: Normocephalic and Anicteric
Cardiovascular: S1-S2, Regular Rhythm, Murmur (n), Rub (n), Peripheral Edema (n) and Calf Tenderness (n)
Respiratory: Wheeze (n), Crackles (n), Rhonchi (n), Chest Tube and Other (Decreased breath sounds)
GI: Soft, Non Distended and Non Tender
Neurology: Awake, Alert and No Motor Deficits
Skin: Cyanosis (n), Jaundice (n) and Rash (n)
Labs/Micro/Reports
Lab Data
01/04/24 05:52
01/04/24 05:52
Laboratory Results
01/03/24
08:20
PT 13.9
INR 1.09
APTT 27.3
Microbiology
01/02/24 08:54 Nose MRSA Screen - Final
No Methicillin Resistant Staphylococcus aureus isolated.
[2024-01-04 07:39] LABS: Glucose - Point of Care 80 mg/dl (70-99)
[2024-01-04] MEDS: THERAGRAN 1 TABLET PO (07:59)
[2024-01-04] MEDS: SYMBICORT 160/4.5 MCG INHALER 2 PUFF INH ×2 (08:06→20:05)
[2024-01-04] MEDS: LOW STRENGTH ASPIRIN 81 MG PO (08:07)
[2024-01-04] MEDS: SINGULAIR 10 MG PO (08:07)
[2024-01-04] MEDS: MUCINEX 600 MG PO ×2 (08:10→19:52)
[2024-01-04] MEDS: GLUCOPHAGE 500 MG PO ×2 (08:10→17:15)
[2024-01-04] MEDS: JANUVIA 100 MG PO (08:10)
[2024-01-04] MEDS: FOLVITE 1 MG PO (08:10)
[2024-01-04] MEDS: OSCAL CAL 500 500 MG PO (08:10)
[2024-01-04] MEDS: VITAMIN D3 (cholecalciferol) 50 MCG PO (08:11)
[2024-01-04] MEDS: NORVASC 5 MG PO (08:13)
[2024-01-04] MEDS: NOVOLOG FLEXPEN-LOW RESISTANCE SC ×3 (08:15→16:56)
[2024-01-04] MEDS: NOVOLOG FLEXPEN SC (08:29)
[2024-01-04] MEDS: LANTUS 0.119999999999999996 UNITS SC (08:29)
--- NOTE | 2024-01-04 10:20 | W.PN.HOSP.TC ---
Today's Communication/Plan
-
CT chest
Chest tube
Discontinue standing NovoLog and watch sugars today
Assessment / Plan
Assessment / Plan
CVS: S1-S2 normal
Chest: Decreased breath sounds on the left, clear to auscultation otherwise
Abdomen: Soft, NT / Bowel sounds present
Extremities: No edema, normal pulses
ADMISSIONS SUPERVISOR: Non focal exam
CXR 01/02/24: Left chest tube again seen with likely resolution of left pneumothorax.
#Spontaneous left pneumothorax:
-Likely precipitated by recent RSV infection
-chest tube was placed in the emergency room on 01/02/2024
-pulmonary following
-continue oxygen supplementation
-CT scan today
-Possible clamping of chest tube overnight
#DM2:
-a1c 9.3%
-cont cont Lanuts 12 units/SSI/accuchecks
-Discontinue AC NovoLog standing .
-cont Metformin/Januvia
#Mild hyponatremia
#COPD/asthma: Continue Singulair/Symbicort
#Essential hypertension: cont amlodipine
#Hyperlipidemia: continue statin
#h/o CVA February 2022 hospitalized at [facility] [place]: cont ASA/statin
#h/o breast cancer with bilateral mastectomy in 1987 in 2003
#DNR
#DVT Prophylaxis-Lovenox
Discussed with tennis court attendant
Discussed with family at bedside
Anticipated Discharge: 24 - 48 hours
Subjective/Interval History
-
Date of Service: January 04, 2024
Objective Data
-
Labs:
Laboratory Results
01/04/24
05:52
WBC 11.5 H
Hgb 13.6
Hct 40.4
Plt Count 204
Sodium 134 L
Potassium 4.1
Chloride 102
Carbon Dioxide 29
BUN 16
Creatinine 0.7
Glucose 80
Calcium 8.9
Vital Signs:
Vital Signs
Temp Pulse Resp BP Pulse Ox
97.9 F 68 22 119/63 89
01/04/24 07:53 01/04/24 08:13 01/04/24 08:06 01/04/24 08:13 01/04/24 08:06
I&O
01/03/24 01/04/24 01/05/24
06:59 06:59 06:59
Intake Total 2200 / 2200 540 / 540
Output Total 1400 / 1400 1000 / 1000
Balance 800 / 800 -460 / -460
[2024-01-04 11:53] LABS: Glucose - Point of Care 110 mg/dl (70-99)
--- NOTE | 2024-01-04 14:51 | PTCARENOTE ---
Patient received in AM with assessment as noted. Continues alert,oriented and pleasant. OOB to chair since 944 and transfers with 1 person minimal assist. NSR on monitor. Afebrile . B/P's stable. Lungs diminished through out. Left chest tube with
scant red drainage, no air leak or tidaling noted. No crepitus. Sao2 96% on 1 lnc but only 88% on room air. Appetite good. Had a small amount of stool mixed with urine on the commode. Has voided multiple times on the bed side commode. Family into
visit and updated patient condition. Patient currently OOB to chair with call perry and telephone in reach. Will continue to monitor closely.
[2024-01-04] MEDS: ProAIR HFA INHALER 1 PUFF INH (15:26)
[2024-01-04 16:55] LABS: Glucose - Point of Care 84 mg/dl (70-99)
[2024-01-04] MEDS: CRESTOR 5 MG PO (17:15)
[2024-01-04] MEDS: LOVENOX 40 MG SC (17:16)
--- NOTE | 2024-01-04 18:40 | PTCARENOTE ---
Patient for transfer to IMU, while I was on the phone giving report she stood up while on the commode and the chest tube was pulled out. I was immediately called to the room, placed a occlusive dressing to the site and ordered a stat chest x-ray.
Lungs equal but coarse, Sao2 96% on 1lnc. No resp distress noted. immediately updated. Patient to remain in the room for tonight. Her daughter was called and updated. Report given to slot shift manager. Daughter called and updated.
[2024-01-04] MEDS: TYLENOL PO (20:00)
--- NOTE | 2024-01-04 20:17 | PTCARENOTE ---
Received pt resting in bed, AAOx3. No complaints or pain at this time. PRICE, minimal assist up to BSC. SR on tele, HR 70s. BP stable. Afebrile. On 2L NC, spo2 98%. Site of old chest tube with dsg c/d/i. Left lung diminished with rhonchi B/L.
Productive, moist cough with clear/white sputum. + bowel sounds. Voided yellow urine in BSC. Pt. requested purewick to be placed for night time due to frequent urination. Nellie care provided. Monitoring. Order for repeat chest xray at 2200.
[2024-01-04 23:55] LABS: Glucose - Point of Care 93 mg/dl (70-99)
[2024-01-05] VITALS (12 sets, daily range): BP systolic 119–150; BP diastolic 57–81; PULSE 89; O2SAT 93–94; BMI 23.0
[2024-01-05] MEDS: TYLENOL PO (00:04)
[2024-01-05 05:15] LABS: Hematocrit 38.7 % (37.0-47.0); Hemoglobin 12.8 g/dL (12.0-16.0); Mean Corp Hgb Conc. 33.1 g/dL (33.0-37.0); Mean Corpuscular Hgb 27.4 pg (27.0-31.0); Mean Corpuscular Volume 82.9 fL (81.0-99.0); Platelet Count 172 10^3/uL (130-400); Red Blood Cell Count 4.67 10^6/uL (4.20-5.40); Red Cell Dist. Width 14.2 % (11.5-14.5); White Blood Cell Count 10.3 10^3/uL (4.8-10.8)
[2024-01-05 05:47] LABS: Blood Urea Nitrogen 14 mg/dl (7-17); Carbon Dioxide 29 mmol/L (22-30); Chloride 105 mmol/L (98-107); Estimated Creatinine Clearance 43 ml/min; Glucose 82 mg/dl (70-99); Potassium 3.7 mmol/L (3.5-5.1); Sodium 136 mmol/L (135-145); eGFR > 60.00
--- NOTE | 2024-01-05 05:48 | PTCARENOTE ---
No changes in assessment overnight. On 1L NC- attempted to wean to RA but pulse ox 89%. 96% on 1L. No complaints of chest pain or shortness of breath. Breath sounds diminished throughout.
--- NOTE | 2024-01-05 07:17 | W.PN.INTV ---
Today's Communication / Plan
Recommendations
O2
CXR AM
BDs
Assessment
-
88-year-old female with history of asthma/COPD, recent RSV pneumonia discharged 12/29/23 on steroid therapy, now presents with acute onset shortness of breath, found to have left pneumothorax, requiring chest tube 01/02/24
Spontaneous left pneumothorax
Chest tube in ED 01/02/2024
Recent RSV pneumonia, discharged 12/29/23 from [facility]
Hyperglycemia, poorly controlled
Mild hyponatremia
Conditions present prior to admission
Hypertension/hyperlipidemia
History of stroke February 2022
Hospitalized at [facility], right-sided weakness/numbness
History of breast cancer 1987, recurred 2003
Bilateral mastectomy/chemotherapy/tamoxifen therapy
History of COPD/asthma
Followed by [place] [facility]
Plan/recommendations
L chest tube removed 01-03 (dislodged)
Complete collapse of left lung on adm CXR
Noted recent history of RSV pneumonia
CT chest s/c 01-03 reviewed, no gross parenchymal abnormalities at L lung, incidental finding of R basilar bulla (no previous CT for comparison)
Continue symbicort, montelukast, alb HFA prn
Observing off systemic CS
DVT prophylaxis: enoxaparin
No indication for GERD therapy at this time
Can downgrade from IMU to [facility] s telemetry, pulm to follow
Will recommend inpatient status until 01-05, can d/c if no recurrence of L pneumothorax on CXR (ordered)
No critical care time today
Subjective Dataa
Subjective Data
Date of Service:
Date of Service: January 05, 2024
Chief Complaint: Diamond Setter Follow Up
Subjective:
No major events reported overnight
Dislodged left chest tube yesterday, 420 no recurrence of pneumothorax
Denies pain or complaints at time of visit, left chest pain has resolved since after chest tube was dislodged
No previous history of pneumothorax
Former smoker
Review of Systems
General: Fever (n), Sweats (n), Chills (n) and Satisfactory Appetite
HEENT: Epistaxis and Dysphagia (n)
Cardiopulmonary: Dyspnea, Cough, Sputum Production (n), Wheezing and Chest Pain (n)
GI: Abdominal Pain (n), Nausea (n) and Vomiting
Neuro: Weakness
Objective Data
Data Reviewed
Vital Signs / I&O / Oxygen:
Vital Signs
Temp Pulse Resp BP Pulse Ox
97.7 F 71 20 124/58 95
01/05/24 04:45 01/05/24 06:00 01/05/24 06:00 01/05/24 06:00 01/05/24 06:00
Intake and Output
01/04/24 01/05/24 01/06/24
06:59 06:59 06:59
Intake Total 540 / 540 780 / 780
Output Total 1000 / 1000 1400 / 1400
Balance -460 / -460 -620 / -620
SaO2 95
Nasal Cannula flow liters per 1
minute
Physical Exam
General: Comfortable
HEENT: Normocephalic and Anicteric
Cardiovascular: S1-S2, Regular Rhythm, Murmur (n), Rub (n), Peripheral Edema (n) and Calf Tenderness (n)
Respiratory: Wheeze (n), Crackles (n), Rhonchi (n) and Stridor (n)
GI: Soft, Non Distended and Non Tender
Neurology: Awake, AO x 3 and No Motor Deficits
Skin: Cyanosis (n), Jaundice (n) and Rash (n)
Labs/Micro/Reports
Lab Data
01/05/24 04:47
01/05/24 04:47
Microbiology
01/02/24 08:54 Nose MRSA Screen - Final
No Methicillin Resistant Staphylococcus aureus isolated.
[2024-01-05] MEDS: NOVOLOG FLEXPEN-LOW RESISTANCE SC ×3 (07:50→16:44)
[2024-01-05] MEDS: FOLVITE 1 MG PO (07:50)
[2024-01-05] MEDS: JANUVIA 100 MG PO (07:51)
[2024-01-05] MEDS: OSCAL CAL 500 500 MG PO (07:51)
[2024-01-05] MEDS: LANTUS 0.119999999999999996 UNITS SC (07:51)
[2024-01-05] MEDS: MUCINEX 600 MG PO ×2 (07:51→20:25)
[2024-01-05] MEDS: GLUCOPHAGE 500 MG PO ×2 (07:51→16:47)
[2024-01-05] MEDS: LOW STRENGTH ASPIRIN 81 MG PO (07:51)
[2024-01-05] MEDS: NORVASC 5 MG PO (07:51)
[2024-01-05] MEDS: VITAMIN D3 (cholecalciferol) 50 MCG PO (07:52)
[2024-01-05] MEDS: THERAGRAN 1 TABLET PO (07:52)
[2024-01-05] MEDS: SINGULAIR 10 MG PO (07:54)
[2024-01-05] MEDS: SYMBICORT 160/4.5 MCG INHALER 2 PUFF INH ×2 (07:56→19:51)
[2024-01-05 08:00] LABS: Glucose - Point of Care 86 mg/dl (70-99)
--- NOTE | 2024-01-05 11:42 | W.PN.HOSP.TC ---
Today's Communication/Plan
-
see bold
Assessment / Plan
Assessment / Plan
Gen: NAD, AAOx3.
Eyes: EOMI, PERRLA, no scleral icterus.
Neck: supple.
CV: RRR, +S1/S2, no m/r/g.
Resp: CTAB, no rales, wheezes, or rhonchi.
Abd: +BS, soft, NT, ND
Skin: No rashes.
Neuro: CN 2-12 intact, non-focal.
Psych: Normal mood and affect.
CT chest 01/04/24: No significant abnormality identified in the chest within the limits of unenhanced CT, as described above. No pneumothorax.
CXR 01/05/24: No acute cardiopulmonary process. No pneumothorax.
Spontaneous left pneumothorax:
-Likely precipitated by recent RSV infection
-chest tube was placed in the emergency room on 01/02/2024
-pulmonary following
-continue oxygen supplementation
-CT fell out on 01/04/24
-no PTX on most recent imaging
DM2:
-a1c 9.3%
-cont Lantus 12U/SSI/accuchecks
-cont Metformin/Januvia
Other problems:
Mild hyponatremia
COPD/asthma: Continue Singulair/Symbicort
Essential hypertension: cont amlodipine
Hyperlipidemia: continue statin
h/o CVA February 2022 hospitalized at [facility] [place] cont ASA/statin
h/o breast cancer with bilateral mastectomy in 1987 in 2003
DNR/Lovenox
Downgrade to MS
Anticipated Discharge: Within 24 hours
Subjective/Interval History
-
Date of Service: January 05, 2024
Objective Data
-
Labs:
Laboratory Results
01/05/24
04:47
WBC 10.3
Hgb 12.8
Hct 38.7
Plt Count 172
Sodium 136
Potassium 3.7
Chloride 105
Carbon Dioxide 29
BUN 14
Creatinine 0.7
Glucose 82
Calcium 8.0 L
Vital Signs:
Vital Signs
Temp Pulse Resp BP Pulse Ox
98.4 F 72 22 129/81 96
01/05/24 11:19 01/05/24 10:00 01/05/24 10:00 01/05/24 08:00 01/05/24 10:00
I&O
01/04/24 01/05/24 01/06/24
06:59 06:59 06:59
Intake Total 540 / 540 780 / 780
Output Total 1000 / 1000 1400 / 1400
Balance -460 / -460 -620 / -620
[2024-01-05 11:59] LABS: Glucose - Point of Care 117 mg/dl (70-99)
--- NOTE | 2024-01-05 13:40 | CM ---
Reviewed the chart notes. Patient now on 1L/min supplemental O2. Per PT, patient ambulated 80' x 1 without assistive device with min assist for slight loss of balance. PT recommending SNF. Family per notes want SNF at [facility]. Referral to
[facility] sent via [facility]. CM continues to be available to patient/family and is monitoring medical plan for needs at discharge.
Plan: SNF/rehab prior to transitioning back to home. Prior auth will be needed.
--- NOTE | 2024-01-05 14:45 | PTCARENOTE ---
Systems reviewed. Pt with decreased breath sounds on left, but denies sob, sats wnl on 1lnc. No changes.
--- NOTE | 2024-01-05 16:28 | PTCARENOTE ---
pt ambulated in hallway using a walker with daughter on room air. after ambulation sats 90-91%
[2024-01-05 16:54] LABS: Glucose - Point of Care 121 mg/dl (70-99)
[2024-01-05] MEDS: CRESTOR 5 MG PO (17:51)
[2024-01-05] MEDS: LOVENOX 40 MG SC (17:51)
--- NOTE | 2024-01-05 18:16 | PTCARENOTE ---
Pt. transferred to from ICU. VSS. Pt. AAOx3, sitting in chair resting comfortably. Pt. oriented to unit. Call perry within reach.
--- NOTE | 2024-01-05 18:46 | PTCARENOTE ---
Pt transferred to 2121 in . Report given to Kaveh . Daughter Jeanne called and made aware of transfer. Hearing aids and glasses went with patient.
[2024-01-05 21:26] LABS: Glucose - Point of Care 150 mg/dl (70-99)
[2024-01-06 05:36] VITALS: BMI 22.9
[2024-01-06] MEDS: SYMBICORT 160/4.5 MCG INHALER 2 PUFF INH (07:28)
[2024-01-06 07:41] LABS: Glucose - Point of Care 102 mg/dl (70-99)
[2024-01-06] MEDS: NOVOLOG FLEXPEN-LOW RESISTANCE SC (08:15)
[2024-01-06] MEDS: THERAGRAN 1 TABLET PO (08:16)
[2024-01-06] MEDS: LOW STRENGTH ASPIRIN 81 MG PO (08:16)
[2024-01-06] MEDS: VITAMIN D3 (cholecalciferol) 50 MCG PO (08:16)
[2024-01-06] MEDS: OSCAL CAL 500 500 MG PO (08:16)
[2024-01-06] MEDS: MUCINEX 600 MG PO (08:16)
[2024-01-06] MEDS: NORVASC 5 MG PO (08:16)
[2024-01-06] MEDS: JANUVIA 100 MG PO (08:16)
[2024-01-06] MEDS: SINGULAIR 10 MG PO (08:16)
[2024-01-06] MEDS: GLUCOPHAGE 500 MG PO (08:16)
[2024-01-06] MEDS: FOLVITE 1 MG PO (08:16)
[2024-01-06] MEDS: LANTUS 0.119999999999999996 UNITS SC (08:49)
--- NOTE | 2024-01-06 09:15 | W.PN.PUL3 ---
Addendum entered and electronically signed by Wilfredo Gutierrez MD 01/06/24 13:12:
Addendum: Patient already discharged on home oxygen from her recent hospitalization at [facility]. No need for reassessment of home O2 at this time. 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
assessment (i.e.�6-minute walk test).
Original Note:
Today's Communication / Plan
-
Ambulatory pulse ox prior to discharge
CXR today shows no PTX
Avoid incentive spirometer given recent large L-sided PTX
Symbicort w/ prn albuterol
Pt stable for discharge assuming walking pulse ox is done first. She has a physician who manages her asthma, andn I advised her to follow up with them. I also advised to her that she can follow with us if she wishes.
Pulmonary service will now sign off. Please reconsult if there are any additional questions/concerns, or if patient's respiratory status deteriorates.
Assessment
-
88-year-old female with history of asthma/COPD, recent RSV pneumonia discharged 12/29/23 on steroid therapy, now presents with acute onset shortness of breath, found to have left pneumothorax, requiring chest tube 01/02/24
Spontaneous left-sided pneumothorax (likely secondary to recently Dx RSV at [facility])
Acute hypoxic respiratory failure
Chest tube in ED 01/02/2024
Recent RSV pneumonia, discharged 12/29/23 from [facility]
Hyperglycemia - now pt euglycemic
Mild hyponatremia - resolved
Remote tobacco use disorder (quit 1987, smoked <1/2PPD x few years)
Conditions present prior to admission
Hypertension/hyperlipidemia
History of stroke February 2022
Hospitalized at [facility], right-sided weakness/numbness
History of breast cancer 1987, recurred 2003
Bilateral mastectomy/chemotherapy/tamoxifen therapy
History of COPD/asthma on Symbicort and prn albuterol at home
Followed by [facility]
Plan/recommendations
L chest tube removed 01-03 (dislodged)
Complete collapse of left lung on adm CXR
Noted recent history of RSV pneumonia
CT chest s/c 01-03 reviewed, no gross parenchymal abnormalities at L lung, incidental finding of R basilar bulla (no previous CT for comparison) with b/l lower lobe bronchial wall thickening
Continue symbicort 160mcg (rinse mouth after use), montelukast, alb HFA prn
Observing off systemic CS
Given her Hx of COPD/asthma, would keep SpO2 >88%
DVT prophylaxis: enoxaparin
No indication for stress ulcer ppx
Pulmonary service will now sign off. Thank you for allowing us to be involved in the care of this patient. Please reconsult if there are any additional questions/concerns, or if patient's respiratory status deteriorates.
Total time spent today was 25 minutes for this encounter. Time includes reviewing laboratory test/imaging results, reviewing pertinent medical records, obtaining and reviewing medical history, performing an appropriate exam, ordering medications,
tests and procedures. Time also includes documentation of this encounter, coordinating patient care and communicating with other healthcare professionals. Total time does not include separately billed tests performed on this date of service.
Data:
CXR 01-06-2024: No acute cardiopulmonary process.
Subjective Data
-
Date of Service:
Date of Service: January 06, 2024
Chief Complaint: Pulmonary Follow Up
Subjective:
Patient seen today at bedside. She feels well. On room air breathing comfortably. Eager to go home. No acute overnight events reported. Currently denies chest pain, headache, abdominal pain, fevers or chills.
Review of Systems
General: Other (Negative unless mentioned above)
Objective Data
Data Reviewed
Vital Signs / I&O / Oxygen:
Vital Signs
Temp Pulse Resp BP Pulse Ox
97.5 F 91 16 123/73 93
01/06/24 07:43 01/06/24 08:16 01/06/24 07:43 01/06/24 08:16 01/06/24 07:43
Intake and Output
01/05/24 01/06/24 01/07/24
06:59 06:59 06:59
Intake Total 780 / 780 720 / 720
Output Total 1400 / 1400
Balance -620 / -620 720 / 720
SaO2 93
Nasal Cannula flow liters per 93
minute
Physical Exam
General: Comfortable
HEENT: Normocephalic and Anicteric
Cardiovascular: S1-S2 and Peripheral Edema (n)
Respiratory: Clear, Wheeze (n), Crackles (n), Rhonchi (n) and Other (Reduced breath sounds bilaterally)
GI: Soft, Non Distended and Non Tender
Neurology: Awake and Alert
Skin: Warm and Dry
Labs/Micro/Reports
Lab Data
01/05/24 04:47
01/05/24 04:47
Microbiology
01/02/24 08:54 Nose MRSA Screen - Final
No Methicillin Resistant Staphylococcus aureus isolated.
[2024-01-06 11:16] LABS: Glucose - Point of Care 191 mg/dl (70-99)
[2024-01-06] MEDS: NOVOLOG FLEXPEN-LOW RESISTANCE 1 UNITS SC (11:57)
--- NOTE | 2024-01-06 13:08 | W.PN.HOSP.TC ---
Today's Communication/Plan
-
d/c
Assessment / Plan
Assessment / Plan
Gen: NAD, AAOx3.
Eyes: EOMI, PERRLA, no scleral icterus.
Neck: supple.
CV: remains RRR, +S1/S2, no m/r/g.
Resp: remains CTAB, no rales, wheezes, or rhonchi.
Abd: remains +BS, soft, NT, ND
Skin: No rashes.
Neuro: CN 2-12 intact, non-focal.
Psych: Normal mood and affect.
CT chest 01/04/24: No significant abnormality identified in the chest within the limits of unenhanced CT, as described above. No pneumothorax.
CXR 01/05/24: No acute cardiopulmonary process. No pneumothorax.
CXR 01/06/24: No acute cardiopulmonary process.
Spontaneous left pneumothorax:
-Likely precipitated by recent RSV infection
-chest tube was placed in the emergency room on 01/02/2024
-pulmonary following
-continue oxygen supplementation
-CT fell out on 01/04/24, no PTX on subsequent imaging
-cleared for discharge by pulmonary
DM2:
-a1c 9.3%
-cont Lantus 12U/SSI/accuchecks
-cont Metformin/Januvia
Other problems:
Mild hyponatremia
COPD/asthma: Continue Singulair/Symbicort
Essential hypertension: cont amlodipine
Hyperlipidemia: continue statin
h/o CVA February 2022 hospitalized at [facility]: cont ASA/statin
h/o breast cancer with bilateral mastectomy in 1987 in 2003
DNR/Lovenox
Total time spent on d/c = 31 min. This included today's physical exam, progress note, review of laboratory and diagnostic data, preparation of discharge documents and prescriptions, and discussions about the pt's hospital course and discharge plan
with the patient and other medical appointment clerk involved in the patient's care.
Anticipated Discharge: Today
Subjective/Interval History
-
Date of Service: January 06, 2024
Objective Data
-
Vital Signs:
Vital Signs
Temp Pulse Resp BP Pulse Ox
97.5 F 91 16 123/73 93
01/06/24 07:43 01/06/24 08:16 01/06/24 07:43 01/06/24 08:16 01/06/24 07:43
I&O
01/05/24 01/06/24 01/07/24
06:59 06:59 06:59
Intake Total 780 / 780 720 / 720
Output Total 1400 / 1400
Balance -620 / -620 720 / 720
[2024-01-06 14:32] LABS: COVID-19 Antigen Negative (Negative)
[2024-01-06 15:16] VITALS: BP 150/74
--- NOTE | 2024-01-06 15:23 | CM ---
Addendum entered by Rochelle Polk 01/06/24 15:27:
Auth # [id number], reviews to Jennifer [phone]
Original Note:
Patient has been medically cleared for discharge to [facility] for penitentiary and rehab services. Daughter will transport.
NURSE TO NURSE # [phone]
FAX # [phone]
--- NOTE | 2024-01-06 15:25 | PTCARENOTE ---
Discharge instructions and continuum of care faxed to Ayla Hoang ([phone] per Case Mgmt)
--- NOTE | 2024-01-06 15:41 | W.DCSUMMARY ---
Discharge Summary
Discharge Data
Date of Admission: 01/02/24
Date of Discharge: 01/06/24
-
Pending Results: No
Hospital Course
Primary diagnoses:
Spontaneous left pneumothorax likely precipitated by recent RSV infection
Secondary diagnoses:
Type 2 diabetes mellitus
Mild hyponatremia
Chronic obstructive pulmonary disease
Asthma
Essential hypertension
Hyperlipidemia
h/o cerebrovascular accident February 2022
h/o breast cancer with bilateral mastectomy in 1987 in 2003
Consultants:
Pulmonary
Imaging:
CXR on admission: Total left pneumothorax without mediastinal shift. Some right middle lobe opacity most likely representing subsegmental atelectasis.
CT chest 01/04/24: No significant abnormality identified in the chest within the limits of unenhanced CT, as described above. No pneumothorax.
CXR 01/05/24: No acute cardiopulmonary process. No pneumothorax.
CXR 01/06/24: No acute cardiopulmonary process.
Hospital course: 88-year-old female who presented with chief complaint shortness of breath as outlined in the H&P done on admission. The patient was found to have a spontaneous left pneumothorax. Chest x-ray above. This was suspected to have been
precipitated by recent RSV infection. Chest tube was placed in the emergency room. Patient was followed by pulmonary. She was placed on oxygen supplementation. Her chest tube fell out on 01/04/24. As above there was no pneumothorax on subsequent
imaging. The patient was cleared for discharge by pulmonary.
Discharge Plan
-
Patient Disposition: Penitentiary/SNF
Discharge Diagnosis/Procedures: Spontaneous left pneumothorax likely precipitated by recent RSV infection
Condition: Good
Diet: Diabetic, Carb Controlled
Activity: As tolerated
Driving Restrictions: No driving
Blood Work: BMP and CBC in 1 week, script from PCP
Referrals:
Rosina Warren MD [Family Provider] - in less than 1 week
Prescriptions:
Continued
multivitamin Tablet
1 tab PO DAILY
metformin 500 mg Tablet
500 mg PO BID
ketoconazole 2 % Shampoo
1 applic TOPICAL .2X/WEEK
Rx Instructions:
twice weekly
loperamide [Imodium A-D] 2 mg Tablet
2 mg PO DAILY PRN (Reason: diarrhea)
amlodipine 5 mg Tablet
5 mg PO DAILY
acetaminophen 500 mg Tablet
500 mg PO Q6H PRN (Reason: pain)
calcium carbonate 600 mg calcium (1,500 mg) Tablet
600 mg PO DAILY
benzonatate 100 mg Capsule
100 mg PO TID PRN (Reason: cough)
calcium polycarbophil 625 mg Tablet
625 mg PO DAILY
aspirin 81 mg Tablet,Chewable
81 mg PO DAILY
folic acid 1 mg Tablet
1 mg PO DAILY
montelukast [Singulair] 10 mg Tablet
10 mg PO DAILY
albuterol sulfate 90 mcg/actuation Hfa Aerosol Inhaler
1 inh INHALATION Q4HPRN PRN (Reason: sob/wheeze)
fluticasone propionate 50 mcg/actuation [place],Suspension
1 spray INTRANASAL DAILY
rosuvastatin 5 mg Tablet
5 mg PO DAILY
clobetasol 0.05 % Shampoo
1 applic TOPICAL BIDPRN PRN (Reason: itchy scalp)
insulin glargine 100 unit/mL Cartridge
12 unit SC DAILY
Januvia 100 mg Tablet
100 mg PO DAILY
budesonide-formoterol [Symbicort] 160-4.5 mcg/actuation Hfa Aerosol Inhaler
2 puff INHALATION BID
cholecalciferol (vitamin D3) [Vitamin D3] 50 mcg (2,000 unit) Tablet
50 mcg PO DAILY
guaifenesin [Mucinex] 600 mg Tablet Extended Release 12hr
600 mg PO BID
Discharge Orders:
Discharge Patient (As Directed); Ordered 01/06/24
Ordered By: Manoj Hernandez
Discharge Date and Time
Print Language: ESTONIAN
== END 2024-01-06 15:42 | DRG 200 ==
LOC: 2 NORTH 05:27
PROVIDERS: Emergency Medicine; Hospitalist; Internal Medicine; Nurse Practitioner Gerontology; ADMITTING PHYSICIAN Student in an Organized Health Care Education/Training Program; ATTENDING PHYSICIAN Internal Medicine; CONSULT PHYSICIAN Internal Medicine Critical Care Medicine; EMERGENCY PHYSICIAN Student in an Organized Health Care Education/Training Program; FAMILY PHYSICIAN Internal Medicine Geriatric Medicine
PROC: 0W9B30Z Drainage of Left Pleural Cavity with Drainage Device, Percutaneous Approach (ICD-10-PCS; 2024-01-02)
PROC: 0WPBX0Z Removal of Drainage Device from Left Pleural Cavity, External Approach (ICD-10-PCS; 2024-01-04)
DX: J93.83 Other pneumothorax (principal); E87.1 Hypo-osmolality and hyponatremia; E11.65 Type 2 diabetes mellitus with hyperglycemia; J44.89 Other specified chronic obstructive pulmonary disease; I10 Essential (primary) hypertension; E78.5 Hyperlipidemia, unspecified; Z11.52 Encounter for screening for COVID-19; Z87.891 Personal history of nicotine dependence; Z79.82 Long term (current) use of aspirin; Z79.51 Long term (current) use of inhaled steroids; Z79.4 Long term (current) use of insulin; Z79.84 Long term (current) use of oral hypoglycemic drugs; Z86.73 Personal history of transient ischemic attack (TIA), and cerebral infarction without residual deficits; Z85.3 Personal history of malignant neoplasm of breast; Z92.21 Personal history of antineoplastic chemotherapy; Z90.13 Acquired absence of bilateral breasts and nipples; Z99.81 Dependence on supplemental oxygen
CPT/HCPCS: 36600; 71045; 71046; 71250; 80048; 80053; 82805; 82962; 83036; 83735; 85025; 85027; 85610; 85730; 87070; 87811; 93005; 94640; 96374; 96376; 97116; 97163; 97166; 97530; 99291